=== PATIENT | female | born 1960 | race Caucasian/White ===

== ENCOUNTER → 2019-06-18 | Outpatient (CLI) | payer BC ==
[~2019-06-18] MED LIST: ALLEGRA 180MG180 MG PO; LEVOXYL0.025 MG; LEXAPRO 10MG10 MG PO; PROTONIX20 MG; TRIEST PO; ZOCOR 20MG20 MG PO
== END ==
LOC: MC.RAD 05-16 15:00
DX: Z12.31 Encounter for screening mammogram for malignant neoplasm of breast (principal)

== ENCOUNTER → 2020-09-16 | Outpatient (CLI) | payer BC | LOC: MC.RAD 10:45 | DX: Z12.31 Encounter for screening mammogram for malignant neoplasm of breast (principal) ==